=== PATIENT | female | born 1940 | race Caucasian/White ===

== ENCOUNTER 2017-11-20 02:39 | Inpatient (IN) | payer MEDICARE, OTHER ==
--- NOTE | 2017-11-20 02:45 | C.PDOC ---
History Of Present Illness The patient is brought to the ED by ambulance for evaluation of chest pain which woke her from her sleep around 1.5 hours ago. Medics were then called and patent was given 324mg Aspirin once sublingually. Code heart was activated in the ED. Dr. Ruiz (farm operations manager) was informed about patient's case. Patient is speaking in complete sentences. She denies fever, chills, nausea, vomiting at this time. Time Seen by Provider: 11/20/17 02:45 History Per: Patient, EMS History/Exam Limitations: no limitations Onset/Duration Of Symptoms: Hrs Current Symptoms Are (Timing): Still Present Severity: Severe Pain Scale Rating Of: 6 Quality: Dull, Tightness, Pressure, "Pain" Associated Symptoms: denies: Nausea, Dyspnea Modifying Factors: None Exacerbating Factors: None Alleviating Factors: None Nitro Therapy Administered: 1, Per EMS Recent travel outside of the [place]: No Additional History Per: Patient Past Medical History Reviewed: Historical Data, Nursing Documentation, Vital Signs Vital Signs: Last Vital Signs Temp 98.4 F 11/20/17 02:42 Pulse 88 11/20/17 03:14 Resp 20 11/20/17 03:06 BP 181/107 H 11/20/17 03:14 Pulse Ox 100 11/20/17 03:19 - Medical History PMH: No Chronic Diseases Surgical History: No Surg Hx Family History: States: Unknown Family Hx Review Of Systems Constitutional: Negative for: Fever, Chills ENT: Negative for: Throat Pain Cardiovascular: Positive for: Chest Pain. Negative for: Palpitations Respiratory: Negative for: Cough, Shortness of Breath Gastrointestinal: Negative for: Nausea, Vomiting, Abdominal Pain, Diarrhea Genitourinary: Negative for: Dysuria Musculoskeletal: Negative for: Back Pain Skin: Negative for: Rash, Lesions, Jaundice, Bruising Neurological: Negative for: Weakness, Numbness Psych: Negative for: Anxiety Physical Exam - Physical Exam Appears: Non-toxic Skin: Warm, Dry Head: Normacephalic Eye(s): bilateral: Normal Inspection Oral Mucosa: Moist Neck: Trachea Midline, Supple Chest: Symmetrical, No Deformity, No Tenderness Cardiovascular: Rhythm Regular, No Murmur Respiratory: No Rales, No Rhonchi, No Wheezing Gastrointestinal/Abdominal: Soft, No Tenderness Back: Normal Inspection Extremity: Normal ROM, Capillary Refill (less than 2 seconds ) Extremity: Bilateral: Atraumatic Pulses: Left Dorsalis Pedis: Normal, Right Dorsalis Pedis: Normal Neurological/Psych: Oriented x3 Gait: Unable To Assess ED Course And Treatment - Laboratory Results Result Diagrams: 11/20/17 03:02 11/20/17 03:02 ECG: Interpreted By Me, Viewed By Me ECG Rhythm: Sinus Rhythm, ST/T Changes (acute inf wall mi) O2 Sat by Pulse Oximetry: 100 (on RA) Pulse Ox Interpretation: Normal - Radiology CXR: Interpreted by Me, Viewed By Me CXR Interpretation: No: Infiltrates, Fracture, Pnemothorax Progress Note: Bloodwork, EKG, CXR ordered and reviewed. Brilinta PO, Heparin IV, Morphine IVP, Nitroglycerin IV, and Zofran IVP administered. Code heart called at 0234. Critical Care Time - Critical Care Note Total Time (in mins): 30 Documented critical care: time excludes all time spent performing seperately billable procedures. Disposition Discussed With : Mp Bowling Comment: accepted the pt on his service and took over the care at 3:15 AM Doctor Will See Patient In The: ED Counseled Patient/Family Regarding: Studies Performed, Diagnosis - Disposition Disposition: HOSPITALIZED Disposition Time: 02:45 Condition: GUARDED - POA Core Measure Indicators: Code Heart - Clinical Impression Clinical Impression: Acute inferior myocardial infarction - Scribe Statement The provider has reviewed the documentation as recorded by the Scribe (Brenda Vallejo) Provider Attestation: All medical record entries made by the Scribe were at my direction and personally dictated by me. I have reviewed the chart and agree that the record accurately reflects my personal performance of the history, physical exam, medical decision making, and the department course for this patient. I have also personally directed, reviewed, and agree with the discharge instructions and disposition. Decision To Admit - Pt Status Changed To: Hospital Disposition Of: Inpatient - Admit Certification Admit to Inpatient:: After my assessment, the patient will require hospitalization for at least two midnights. This is because of the severity of symptoms shown, intensity of services needed, and/or the medical risk in this patient being treated as an outpatient. - InPatient: Physician Admission Certification: I certify that this patient requires 2 or more midnights of care for the following reason:: After my assessment, the patient will require hospitalization for at least two midnights. This is because of the severity of symptoms shown, intensity of services needed, and/or the medical risk in this patient being treated as an outpatient. - . Bed Request Type: ICU Admitting Physician: Mp Bowling Patient Diagnosis: Acute inferior myocardial infarction
[2017-11-20 02:50] VITALS: BMI 77.5
[2017-11-20] MEDS: Heparin25000 units/250ml 1/2NS 25,000 UNITS/250 ML BAG IV STA ×2 (03:01→03:11)
[2017-11-20] MEDS ORDERED: Nitroglycerin 50mg in D5W 50 MG/250 ML BOTTLE IV ONE (03:04)
[2017-11-20 03:06] LABS: BASO # 0.1 K/uL (0.0-0.2); BASO % 0.8 % (0.0-2.0); EOS # 0.2 K/uL (0.0-0.7); EOS % 1.9 % (0.0-4.0); HEMOGLOBIN 13.4 g/dL (11.0-16.0); LYMPH # 1.5 K/uL (1.0-4.3); LYMPH % 14.3 % (20.0-40.0); MEAN CELL VOLUME 85.7 fL (81.0-99.0); MEAN CORPUSCULAR HEMOGLOBIN 28.9 pg (27.0-31.0); MEAN CORPUSCULAR HGB CONC 33.8 g/dL (33.0-37.0); MONO # 0.6 K/uL (0.0-0.8); MONO % 5.4 % (0.0-10.0); NEUT # 8.2 K/uL (1.8-7.0); NEUT % 77.6 % (50.0-75.0); RBC 4.65 Mil/uL (3.80-5.20); RED CELL DISTRIBUTION WIDTH 13.4 % (11.5-14.5); WHITE BLOOD COUNT 10.6 K/uL (4.8-10.8)
[2017-11-20] MEDS ORDERED: Heparin25000 units/250ml 1/2NS 25,000 UNITS/250 ML BAG IV ONE ×2 (03:06→03:17)
[2017-11-20] MEDS ORDERED: Morphine 4 MG/ML VIAL ONE (03:09)
[2017-11-20] MEDS ORDERED: Iodixanol 320 MG/ML 200 ML BOTTLE IV ONE (03:14)
[2017-11-20] MEDS ORDERED: Lidocaine 2% Inj (20ml) ONE (03:14)
[2017-11-20 03:16] LABS: ALB/GLOB RATIO 1.1 (1.0-2.1); ALBUMIN 4.1 g/dL (3.5-5.0); ALT/SGPT 27 U/L (9-52); AST/SGOT 42 U/L (14-36); BLOOD UREA NITROGEN 19 mg/dL (7-17); CALCIUM 9.8 mg/dl (8.6-10.4); GFR AFRICAN-AMERICAN > 60; GFR NON-AFRICAN AMERICAN > 60
[2017-11-20 03:35] LABS: PROTHROMBIN TIME 11.1 SECONDS (9.7-12.2)
[2017-11-20] MEDS ORDERED: Verapamil 2 ML ONE (03:56)
[2017-11-20] MEDS ORDERED: Metoprolol 1 mg/ml Inj IVP ONE ×2 (04:11→05:21)
[2017-11-20] MEDS ORDERED: Sodium Chloride 0.9% 1,000 ML IV SCH (05:00)
[2017-11-20] MEDS ORDERED: (Novolog) Insulin Aspart, Recombinant 100 u/ml 10 ml vial SC SCH (05:00)
[2017-11-20] MEDS ORDERED: Sodium Chloride 0.9% 1,000 ML IV ONE (05:03)
--- NOTE | 2017-11-20 05:09 | CP.PCM.CON ---
History of Present Illness - History of Present Illness History of Present Illness: 77 y/o female with pmx of HTN, hyperlipidemia presents to [facility] (formerly [facility]) as code heart. Patient underwent PCI with 2 TRISTAN in RCA. Patient had an episode of ventricular escape during procedure (with HR of 47) and epi/atropine was pushed intra-cath. ~140 ml of Contrast used during cardiac cath including vetriculogram. EF ~45% 2 mg of morphine was provided before my examination. Post procedure, patient in ICU HR 120s-130s, BP 103/87 Patient denies any chest pain, denies any dizziness. Review of Systems - Review of Systems Review of Systems: post cath, patient had no complaints Past Patient History - Past Social History Smoking Status: Never Smoked - CARDIAC Hx Angina: Yes Hx Hypertension: Yes - PULMONARY Hx Respiratory Disorders: No - ENDOCRINE/METABOLIC Hx Diabetes Mellitus Type 1: Yes - PSYCHIATRIC Hx Substance Use: No - ANESTHESIA Hx Anesthesia: Yes Hx Anesthesia Reactions: No Hx Malignant Hyperthermia: Yes Meds Allergies/Adverse Reactions: Allergies Allergy/AdvReac Type Severity Reaction Status Date / Time No Known Allergies Allergy Verified 11/20/17 02:53 - Medications Medications: Current Medications Aspirin (Aspirin Chewable) 81 mg PO DAILY [facility] Nitroglycerin/Dextrose (Nitroglycerin 50 Mg/250 Ml D5w) 50 mg in 250 mls @ 6 mls/hr IV .Q24H ONE; 20 MCG/MIN PRN Reason: Protocol Stop: 11/21/17 03:03 Last Admin: 11/20/17 03:14 Dose: 6 mls/hr Heparin Sodium/Sodium Chloride (Heparin 24727 Units/250ml 1/2 Normal Saline) 25 ,000 units in 250 mls @ 10 mls/hr IV .Q24H ONE Stop: 11/21/17 03:16 Last Admin: 11/20/17 02:50 Dose: 10 mls/hr Sodium Chloride (Sodium Chloride 0.9%) 1,000 mls @ 75 mls/hr IV .[id number] [facility] Sodium Chloride (Sodium Chloride 0.9%) 1,000 mls @ 250 mls/hr IV .Q4H ONE Stop: 11/20/17 09:02 Insulin Aspart (Novolog) 0 unit SC Q4H [facility] PRN Reason: Protocol Metoprolol Tartrate (Lopressor) 25 mg PO BID [facility] Rosuvastatin Calcium (Crestor) 10 mg PO HS [facility] Ticagrelor (Brilinta) 90 mg PO BID [facility] Physical Exam - Constitutional Appears: Non-toxic - Head Exam Head Exam: ATRAUMATIC, NORMAL INSPECTION, NORMOCEPHALIC - Eye Exam Eye Exam: EOMI - ENT Exam ENT Exam: Mucous Membranes Moist - Respiratory Exam Respiratory Exam: NORMAL BREATHING PATTERN - Cardiovascular Exam Cardiovascular Exam: Tachycardia, REGULAR RHYTHM - GI/Abdominal Exam GI & Abdominal Exam: Normal Bowel Sounds - Extremities Exam Extremities exam: Positive for: normal inspection - Neurological Exam Neurological exam: Alert, CN II-XII Intact, Oriented x3 Results - Vital Signs Recent Vital Signs: Last Vital Signs Temp 98.4 F 11/20/17 02:42 Pulse 88 11/20/17 03:14 Resp 20 11/20/17 03:06 BP 181/107 H 11/20/17 03:14 Pulse Ox 100 11/20/17 03:24 - Labs Result Diagrams: 11/20/17 03:02 11/20/17 03:02 Labs: Laboratory Results - last 24 hr 11/20/17 11/20/17 11/20/17 03:02 03:02 03:02 WBC 10.6 RBC 4.65 Hgb 13.4 Hct 39.8 MCV 85.7 MCH 28.9 MCHC 33.8 RDW 13.4 Plt Count 257 MPV 9.0 Neut % (Auto) 77.6 H Lymph % (Auto) 14.3 L [place] % (Auto) 5.4 Eos % (Auto) 1.9 Baso % (Auto) 0.8 Neut # (Auto) 8.2 H Lymph # (Auto) 1.5 [place] # (Auto) 0.6 Eos # (Auto) 0.2 Baso # (Auto) 0.1 PT 11.1 INR 1.0 APTT 180 H* Sodium 136 Potassium 3.8 Chloride 98 Carbon Dioxide 29 Anion Gap 14 BUN 19 H Creatinine 0.9 Est GFR ( Amer) > 60 Est GFR (Non-Af Amer) > 60 Random Glucose 326 H Calcium 9.8 Total Bilirubin 0.5 AST 42 H ALT 27 Alkaline Phosphatase 169 H Troponin I Total Protein 7.8 Albumin 4.1 Globulin 3.6 Albumin/Globulin Ratio 1.1 Blood Type Antibody Screen 11/20/17 11/20/17 03:02 03:02 WBC RBC Hgb Hct MCV MCH MCHC RDW Plt Count MPV Neut % (Auto) Lymph % (Auto) [place] % (Auto) Eos % (Auto) Baso % (Auto) Neut # (Auto) Lymph # (Auto) [place] # (Auto) Eos # (Auto) Baso # (Auto) PT INR APTT Sodium Potassium Chloride Carbon Dioxide Anion Gap BUN Creatinine Est GFR ( Amer) Est GFR (Non-Af Amer) Random Glucose Calcium Total Bilirubin AST ALT Alkaline Phosphatase Troponin I 2.8600 H* Total Protein Albumin Globulin Albumin/Globulin Ratio Blood Type O POSITIVE Antibody Screen Negative Assessment & Plan - Assessment and Plan (Free Text) Assessment: s/p PCI:continue dual antiplatelets: brilinta/asa, continue home dose of lopressor, statin, start acei after 24 hours -s/p 140 ml of constrast - continue IVF at 75 ml/hr -monitor BP as SBP on admission was ~180s-200 -post cardiac cath SBP 112 -DM: BGm high, keep NPO, check HBA1c, ISS/aspart -obtain post cath EKG -DVT ppx lovenox -pud ppx pepcid Patient will benefit from ICU level care post cath and monitor vitals and rhythm. d/w nursing - Date & Time Date: 11/20/17
[2017-11-20 06:35] LABS: BASO # 0.1 K/uL (0.0-0.2); BASO % 0.4 % (0.0-2.0); EOS % 0.1 % (0.0-4.0); HEMOGLOBIN 12.5 g/dL (11.0-16.0); LYMPH # 0.7 K/uL (1.0-4.3); LYMPH % 4.1 % (20.0-40.0); MEAN CELL VOLUME 86.2 fL (81.0-99.0); MEAN CORPUSCULAR HEMOGLOBIN 28.9 pg (27.0-31.0); MEAN CORPUSCULAR HGB CONC 33.6 g/dL (33.0-37.0); MEAN PLATELET VOLUME 8.7 fL (7.2-11.7); MONO # 0.2 K/uL (0.0-0.8); MONO % 1.4 % (0.0-10.0); PLATELET COUNT 256 K/uL (130-400); RBC 4.33 Mil/uL (3.80-5.20); RED CELL DISTRIBUTION WIDTH 13.4 % (11.5-14.5); WHITE BLOOD COUNT 15.9 K/uL (4.8-10.8)
[2017-11-20 06:46] LABS: ALBUMIN 3.7 g/dL (3.5-5.0); ALT/SGPT 55 U/L (9-52); AST/SGOT 177 U/L (14-36); BLOOD UREA NITROGEN 18 mg/dL (7-17); CALCIUM 9.3 mg/dl (8.6-10.4); GFR AFRICAN-AMERICAN > 60; GFR NON-AFRICAN AMERICAN > 60; MAGNESIUM 1.9 mg/dL (1.6-2.3)
[2017-11-20 07:24] LABS: INR 1.1; PROTHROMBIN TIME 11.8 SECONDS (9.7-12.2)
[2017-11-20 07:26] LABS: PARTIAL THROMBOPLASTIN TIME > 200 SECONDS (21-34)
[2017-11-20 08:48] LABS: LYMPHOCYTE 3 % (20-40); MONOCYTE 1 % (0-10); NEUTROPHIL 96 % (50-75); TOTAL CELLS COUNTED 100
[2017-11-20 08:49] LABS: PLATELET ESTIMATE NORMAL (NORMAL)
--- NOTE | 2017-11-20 09:02 | RAD ---
HISTORY: chest pain COMPARISON: Chest x-ray performed 12/07/12 TECHNIQUE: Chest, one view. FINDINGS: Examination limited by habitus. External defibrillator pad projects over the left mid to lower chest. LUNGS: No focal consolidation. Please note that chest x-ray has limited sensitivity for the detection of pulmonary masses. PLEURA: No significant pleural effusion identified. No definite pneumothorax . CARDIOVASCULAR: Heart size appears within normal limits. Atherosclerotic calcifications of the aortic knob. OSSEOUS STRUCTURES: Degenerative changes. VISUALIZED UPPER ABDOMEN: Unremarkable. OTHER FINDINGS: None. IMPRESSION: External defibrillator pad, left mid to lower chest. No focal consolidation, significant pleural effusion, or definite pneumothorax identified.
[2017-11-20] MEDS: (Novolog) Insulin Aspart, Recombinant 100 u/ml 10 ml vial SC SCH ×4 (09:27→22:06)
--- NOTE | 2017-11-20 12:34 | CARDCATH ---
PROCEDURE DATE: 11/20/2017. INDICATIONS: ST-elevation CA inferior wall. PROCEDURES PERFORMED: Left heart catheterization with selective left and right coronary angiogram. Emergent PTCA stenting of proximal RCA, 100% occlusion, deployment of two drug-eluting stents, lesion reduction from 100% up to 0% NANCY-3 flow; 6-Slovak right femoral arterial access and Mynx closure device for hemostasis. ANGIOGRAPHIC FINDINGS: RCA proximal 100% thrombotic ruptured occlusion, left main large-sized vessel bifurcates into LAD and circumflex. Left circumflex has a proximal 40 to 50% stenosis, gives off to medium size obtuse marginal branch, left anterior descending artery has a mild 20% to 30% stenosis gives off two small diagonal branches. Mid LAD 0%, distal LAD 0%. Left ventricular ejection fraction 40% to 45% basal inferior hypokinesis. EDP was 26 mmHg. Intervention performed, successful PTCA stenting of RCA. Whisper wire was crossed through the 100% occluded thrombotic occlusion. The lesion was pre-dilated with a 2.0 balloon, and subsequently, treated with a 3.5 x 28 Xience drug-eluting stent. The proximal edge had a dissection was covered with a 4.0 x 15 mm Xience drug-eluting stent. Final angiogram that showed lesion reduction of 0% NANCY-3 flow. IMPRESSION: Successful percutaneous transluminal coronary angioplasty and stenting of proximal right coronary artery, thrombotic lead up to 100% occlusion deployment of two drug eluting stents. RECOMMENDATION: The patient is to be kept in the ICU overnight. During the procedure, the patient went into complete heart block, required 1 dose of epi and Atropine. She did have AV dissociation at the end of the case. Blood pressure mildly hypertensive at 90 systolic and heart rate in the low 90s to 100s. Dual-antiplatelet therapy for one year. Guideline-directed therapy for CAD, CHF. Echocardiogram in the morning. Further titration based on the clinical course. Dre Ruiz MD
--- NOTE | 2017-11-20 18:24 | CARD ---
APPROVED REPORT EXAM: Two-dimensional and M-mode echocardiogram with Doppler and color Doppler. Other Information Quality : GoodRhythm : INDICATION Acute CT Surgery/Intervention Status/Post Intervention: Stent 2D DIMENSIONS IVSd1.2 (0.7-1.1cm)LVDd3.3 (3.9-5.9cm) PWd1.2 (0.7-1.1cm)LVDs2.3 (2.5-4.0cm) FS (%) 29.1 %LVEF (%)57.2 (>50%) M-Mode DIMENSIONS Left Atrium (MM)4.06 (2.5-4.0cm)Aortic Root2.73 (2.2-3.7cm) Aortic Cusp Exc.1.84 (1.5-2.0cm) Mitral Valve MV E Hwqgcxul739.0cm/sMV A Izbwzlgm364.5cm/sE/A ratio0.6 TDI E/Lateral E'0.0E/Medial E'0.0 Tricuspid Valve TR Peak Sgehlrbk784ci/sTR Peak Gr.[id number] LEFT VENTRICLE The left ventricle is normal size. There is mild concentric left ventricular hypertrophy. The Ejection Fraction is 55-60%. There is normal LV segmental wall motion. Transmitral Doppler flow pattern is Grade I-abnormal relaxation pattern. RIGHT VENTRICLE The right ventricle is normal size. The right ventricular systolic function is normal. ATRIA The left atrium is mildly dilated. The right atrium size is normal. The interatrial septum is intact with no evidence for an atrial septal defect. AORTIC VALVE The aortic valve is trileaflet. The aortic valve is mildly calcified. No aortic regurgitation is present. MITRAL VALVE Mitral annular calcification is moderate. Mitral regurgitation is mild. TRICUSPID VALVE The tricuspid valve is normal in structure. There is mild tricuspid regurgitation. Right ventricular systolic pressure is estimated at 32 mmHg. There is no pulmonary hypertension. PULMONIC VALVE The pulmonary valve is normal in structure. GREAT VESSELS The aortic root is normal size. The aortic root displays mild sclerocalcific changes of the aortic root. The IVC is normal in size and collapses >50% with inspiration. PERICARDIAL EFFUSION There is no pericardial effusion. <Conclusion> The left ventricle is normal size. There is mild concentric left ventricular hypertrophy. The Ejection Fraction is 55-60%. Transmitral Doppler flow pattern is Grade I-abnormal relaxation pattern. The left atrium is mildly dilated. Mitral annular calcification is moderate. Mitral regurgitation is mild. There is mild tricuspid regurgitation. Right ventricular systolic pressure is estimated at 32 mmHg. There is no pulmonary hypertension. The aortic root is normal size. The aortic root displays mild sclerocalcific changes of the aortic root.
--- NOTE | 2017-11-20 23:57 | HP ---
HISTORY OF PRESENT ILLNESS: A 77-year-old female with a history of hypertension, diabetes, high cholesterol, possible angina, was brought in the history of chest discomfort, which started about an hour ago, prior to arrival to the emergency room. She was found to be in acute inferior wall GA. The patient had a Code Heart, taken to the [facility] and had 2 stents placed in RCA by Dr. Ruiz. The patient was subsequently admitted to the ICU. PERSONAL HISTORY: Does not smoke, does not drink. ALLERGIES: Denied. FAMILY HISTORY: Negative for premature coronary artery disease. REVIEW OF SYSTEMS: No fever, no chills. No cough, no exudates, no hematemesis, no melena, no issue of peptic ulcer disease, no bleeding disorders, occasional joint pains, both in the knees and the back. Skin is negative for rash. Neurologically, no history of TIAs or CVA. Psych: No evidence of depression or anxiety. Previously, she had an occasional chest pain, was scheduled for Myoview stress test which was not done yet. Echocardiogram had shown normal LV systolic function at home. She had been on aspirin, Crestor, Toprol, insulin, hydralazine. PAST MEDICAL HISTORY: Essentially unremarkable. PHYSICAL EXAMINATION GENERAL: Shows an elderly female, who is conscious, alert, somewhat obese, in no acute distress. VITAL SIGNS: She is 5 feet, weighs 180 pounds. Blood pressure is 140/70, heart rate of 96, respiratory rate of 12, afebrile. HEENT: Head is normocephalic. Eyes: No pallor, no icterus. NECK: Supple. No carotid bruits. LUNGS: Clear to auscultation bilaterally. HEART: PMI is not localized. S1 and S2 is distant. No definite gallops or murmurs. ABDOMEN: Soft, nontender. EXTREMITIES: No cyanosis, clubbing, or edema. Distal pulses are intact. LAB DATA: Hemoglobin is 12.5, potassium is 3.8, BUN is 18, creatinine is 0.9. Troponins were elevated from 2.8 to 5.2. Initial EKG had shown acute injury to the inferior wall. Repeat EKG this morning had shown evolutionary changes from the inferior wall GA. The patient currently is on aspirin, Brilinta, and metoprolol, along with insulin. ASSESSMENT: A 77-year-old female, with history of hypertension, diabetes, has presented with acute inferior wall myocardial infarction. Status post angioplasty to right coronary artery with two stents deployed. PLAN: Continue the aspirin, Brilinta, beta blockers. Control the diabetes. We will obtain echocardiogram in a couple of days to evaluate LV systolic function. Mp Bowling MD
[2017-11-21 06:56] LABS: BASO # 0.1 K/uL (0.0-0.2); BASO % 0.6 % (0.0-2.0); EOS # 0.1 K/uL (0.0-0.7); EOS % 0.7 % (0.0-4.0); HEMOGLOBIN 12.3 g/dL (11.0-16.0); LYMPH # 0.9 K/uL (1.0-4.3); LYMPH % 9.6 % (20.0-40.0); MEAN CELL VOLUME 85.7 fL (81.0-99.0); MEAN CORPUSCULAR HEMOGLOBIN 28.5 pg (27.0-31.0); MEAN CORPUSCULAR HGB CONC 33.2 g/dL (33.0-37.0); MEAN PLATELET VOLUME 8.9 fL (7.2-11.7); MONO # 0.5 K/uL (0.0-0.8); MONO % 5.7 % (0.0-10.0); NEUT # 7.9 K/uL (1.8-7.0); NEUT % 83.4 % (50.0-75.0); NRBC % 0.1 % (0.0-2.0); PLATELET COUNT 241 K/uL (130-400); RBC 4.31 Mil/uL (3.80-5.20); RED CELL DISTRIBUTION WIDTH 13.3 % (11.5-14.5); WHITE BLOOD COUNT 9.5 K/uL (4.8-10.8)
[2017-11-21 07:26] LABS: ALBUMIN 3.3 g/dL (3.5-5.0); ALT/SGPT 50 U/L (9-52); AST/SGOT 140 U/L (14-36); BLOOD UREA NITROGEN 19 mg/dL (7-17); CALCIUM 8.9 mg/dl (8.6-10.4); GFR AFRICAN-AMERICAN > 60; GFR NON-AFRICAN AMERICAN > 60
[2017-11-21] MEDS: (Novolog) Insulin Aspart, Recombinant 100 u/ml 10 ml vial SC SCH ×5 (08:00→22:24)
[2017-11-21 08:35] LABS: LYMPHOCYTE 7 % (20-40); MONOCYTE 6 % (0-10); NEUTROPHIL 87 % (50-75); PLATELET ESTIMATE NORMAL (NORMAL); TOTAL CELLS COUNTED 100
[2017-11-21 08:41] LABS: ANISOCYTOSIS SLIGHT
[2017-11-21 08:42] LABS: HYPOCHROMIC SLIGHT; POLYCHROMIC SLIGHT
[2017-11-21] MEDS: Enoxaparin 40 mg Syringe SC SCH (09:22)
--- NOTE | 2017-11-21 12:19 | CP.PCM.PN ---
Subjective - Date & Time of Evaluation Date of Evaluation: 11/21/17 Time of Evaluation: 12:18 - Subjective Subjective: better.no chest pains. Objective - Vital Signs/Intake and Output Vital Signs (last 24 hours): Temp Pulse Resp BP Pulse Ox 98.6 F 90 18 155/70 H 96 11/21/17 08:00 11/21/17 11:00 11/21/17 11:00 11/21/17 11:00 11/21/17 11:00 Intake and Output: 11/21/17 11/21/17 06:59 18:59 Intake Total 90 370 Output Total 1100 150 Balance -1010 220 - Medications Medications: Current Medications Aspirin (Aspirin Chewable) 81 mg PO DAILY [facility] Last Admin: 11/21/17 09:20 Dose: 81 mg Enoxaparin Sodium (Lovenox) 40 mg SC DAILY [facility] Last Admin: 11/21/17 09:22 Dose: 40 mg Famotidine (Pepcid) 20 mg PO DAILY [facility] Last Admin: 11/21/17 09:23 Dose: 20 mg Glimepiride (Amaryl) 2 mg PO DAILY [facility] Insulin Aspart (Novolog) 0 unit SC ACHS [facility] PRN Reason: Protocol Last Admin: 11/21/17 12:02 Dose: 8 unit Insulin Glargine (Lantus) 25 unit SC ACB [facility] Metoprolol Tartrate (Lopressor) 25 mg PO BID [facility] Last Admin: 11/21/17 09:22 Dose: 25 mg Nitroglycerin (Nitrostat Sl Tab) 0.4 mg SL Q5M PRN PRN Reason: Pain, Mild (1-3) Last Admin: 11/20/17 13:23 Dose: 0.4 mg Rosuvastatin Calcium (Crestor) 10 mg PO HS [facility] Last Admin: 11/20/17 22:05 Dose: 10 mg Sitagliptin Phosphate (Januvia) 50 mg PO DAILY [facility] Ticagrelor (Brilinta) 90 mg PO BID [facility] Last Admin: 11/21/17 09:22 Dose: 90 mg - Labs Labs: 11/21/17 06:40 11/21/17 06:40 PT 11.8 SECONDS (9.7-12.2) 11/20/17 06:30 INR 1.1 11/20/17 06:30 APTT > 200 SECONDS (21-34) H* D 11/20/17 06:30 - Constitutional Appears: No Acute Distress - Head Exam Head Exam: NORMOCEPHALIC - ENT Exam ENT Exam: Normal Exam - Respiratory Exam Respiratory Exam: Clear to Ausculation Bilateral - Cardiovascular Exam Cardiovascular Exam: REGULAR RHYTHM, Murmur - GI/Abdominal Exam GI & Abdominal Exam: Soft - Extremities Exam Extremities Exam: absent: Pedal Edema - Neurological Exam Neurological Exam: Alert, Oriented x3 Assessment and Plan - Assessment and Plan (Free Text) Plan: inferior mi,s/p stent elidia x 2.will resume rx for dm.transfer to floor
--- NOTE | 2017-11-21 20:18 | CARD ---
APPROVED REPORT EKG Measurement Heart [id number] <Conclusion> Normal sinus rhythm ST elevation, consider inferolateral injury or acute infarct ACUTE ND / STEMI Consider right ventricular involvement in acute inferior infarct Abnormal ECG
[2017-11-22] MEDS: (Novolog) Insulin Aspart, Recombinant 100 u/ml 10 ml vial SC SCH ×4 (08:19→21:25)
[2017-11-22] MEDS: (Lantus) Insulin Glargine, Recombinant SC SCH (08:19)
[2017-11-22] MEDS: Enoxaparin 40 mg Syringe SC SCH (09:37)
[2017-11-23] MEDS: (Lantus) Insulin Glargine, Recombinant SC SCH (08:21)
[2017-11-23] MEDS: (Novolog) Insulin Aspart, Recombinant 100 u/ml 10 ml vial SC SCH ×4 (08:21→22:18)
[2017-11-23] MEDS: Enoxaparin 40 mg Syringe SC SCH (10:12)
--- NOTE | 2017-11-23 17:30 | CP.PCM.PN ---
Subjective - Date & Time of Evaluation Date of Evaluation: 11/23/17 Time of Evaluation: 17:29 - Subjective Subjective: no cp.meds noted.labs noted. Objective - Vital Signs/Intake and Output Vital Signs (last 24 hours): Temp Pulse Resp BP Pulse Ox 98.5 F 72 22 125/47 L 98 11/23/17 12:00 11/23/17 14:30 11/23/17 14:30 11/23/17 12:06 11/23/17 14:30 Intake and Output: 11/23/17 11/23/17 06:59 18:59 Intake Total 240 480 Output Total 400 300 Balance -160 180 - Medications Medications: Current Medications Aspirin (Aspirin Chewable) 81 mg PO DAILY [facility] Last Admin: 11/23/17 10:06 Dose: 81 mg Enoxaparin Sodium (Lovenox) 40 mg SC DAILY [facility] Last Admin: 11/23/17 10:12 Dose: 40 mg Famotidine (Pepcid) 20 mg PO DAILY [facility] Last Admin: 11/23/17 10:07 Dose: 20 mg Glimepiride (Amaryl) 2 mg PO DAILY [facility] Last Admin: 11/23/17 10:06 Dose: 2 mg Insulin Aspart (Novolog) 0 unit SC ACHS [facility] PRN Reason: Protocol Last Admin: 11/23/17 11:46 Dose: 4 unit Insulin Glargine (Lantus) 25 unit SC ACB [facility] Last Admin: 11/23/17 08:21 Dose: 25 units Metoprolol Tartrate (Lopressor) 25 mg PO BID [facility] Last Admin: 11/23/17 10:06 Dose: 25 mg Nitroglycerin (Nitrostat Sl Tab) 0.4 mg SL Q5M PRN PRN Reason: Pain, Mild (1-3) Last Admin: 11/20/17 13:23 Dose: 0.4 mg Rosuvastatin Calcium (Crestor) 10 mg PO HS [facility] Last Admin: 11/22/17 21:33 Dose: 10 mg Sitagliptin Phosphate (Januvia) 50 mg PO DAILY [facility] Last Admin: 11/23/17 10:06 Dose: 50 mg Ticagrelor (Brilinta) 90 mg PO BID [facility] Last Admin: 11/23/17 10:06 Dose: 90 mg - Labs Labs: 11/21/17 06:40 11/21/17 06:40 PT 11.8 SECONDS (9.7-12.2) 11/20/17 06:30 INR 1.1 11/20/17 06:30 APTT > 200 SECONDS (21-34) H* D 11/20/17 06:30 - Eye Exam Eye Exam: Normal appearance - Neck Exam Neck Exam: Normal Inspection - Respiratory Exam Respiratory Exam: Clear to Ausculation Bilateral - Cardiovascular Exam Cardiovascular Exam: REGULAR RHYTHM, Murmur - GI/Abdominal Exam GI & Abdominal Exam: Soft - Extremities Exam Extremities Exam: absent: Pedal Edema - Neurological Exam Neurological Exam: Alert, Oriented x3 Assessment and Plan - Assessment and Plan (Free Text) Assessment: s/p iwmi.stable. will d/c am
[2017-11-24] MEDS: (Novolog) Insulin Aspart, Recombinant 100 u/ml 10 ml vial SC SCH ×4 (08:20→21:25)
[2017-11-24] MEDS: (Lantus) Insulin Glargine, Recombinant SC SCH (08:28)
[2017-11-24] MEDS: Enoxaparin 40 mg Syringe SC SCH (09:58)
--- NOTE | 2017-11-24 20:20 | CP.PCM.PN ---
Subjective - Date & Time of Evaluation Date of Evaluation: 11/24/17 Time of Evaluation: 20:19 - Subjective Subjective: mild sob.no cp Objective - Vital Signs/Intake and Output Vital Signs (last 24 hours): Temp Pulse Resp BP Pulse Ox 98.3 F 77 20 118/69 97 11/24/17 16:00 11/24/17 16:00 11/24/17 16:00 11/24/17 17:58 11/24/17 16:00 - Medications Medications: Current Medications Aspirin (Aspirin Chewable) 81 mg PO DAILY [facility] Last Admin: 11/24/17 09:59 Dose: 81 mg Enoxaparin Sodium (Lovenox) 40 mg SC DAILY [facility] Last Admin: 11/24/17 09:58 Dose: 40 mg Famotidine (Pepcid) 20 mg PO DAILY [facility] Last Admin: 11/24/17 09:59 Dose: 20 mg Glimepiride (Amaryl) 2 mg PO DAILY [facility] Last Admin: 11/24/17 09:59 Dose: 2 mg Insulin Aspart (Novolog) 0 unit SC ACHS [facility] PRN Reason: Protocol Last Admin: 11/24/17 17:59 Dose: 4 unit Insulin Glargine (Lantus) 25 unit SC ACB [facility] Last Admin: 11/24/17 08:28 Dose: 25 units Metoprolol Tartrate (Lopressor) 25 mg PO BID [facility] Last Admin: 11/24/17 17:58 Dose: 25 mg Nitroglycerin (Nitrostat Sl Tab) 0.4 mg SL Q5M PRN PRN Reason: Pain, Mild (1-3) Last Admin: 11/20/17 13:23 Dose: 0.4 mg Rosuvastatin Calcium (Crestor) 10 mg PO HS [facility] Last Admin: 11/23/17 22:17 Dose: 10 mg Sitagliptin Phosphate (Januvia) 50 mg PO DAILY [facility] Last Admin: 11/24/17 09:59 Dose: 50 mg Ticagrelor (Brilinta) 90 mg PO BID [facility] Last Admin: 11/24/17 17:57 Dose: 90 mg - Labs Labs: 11/21/17 06:40 11/21/17 06:40 PT 11.8 SECONDS (9.7-12.2) 11/20/17 06:30 INR 1.1 11/20/17 06:30 APTT > 200 SECONDS (21-34) H* D 11/20/17 06:30 - Constitutional Appears: No Acute Distress - Head Exam Head Exam: NORMOCEPHALIC - Neck Exam Neck Exam: Normal Inspection - Respiratory Exam Respiratory Exam: Clear to Ausculation Bilateral - Cardiovascular Exam Cardiovascular Exam: REGULAR RHYTHM - GI/Abdominal Exam GI & Abdominal Exam: Soft - Extremities Exam Extremities Exam: absent: Pedal Edema - Neurological Exam Neurological Exam: Alert, Oriented x3 Assessment and Plan - Assessment and Plan (Free Text) Plan: tele nsr.will observe tonight.
[2017-11-25] MEDS: (Lantus) Insulin Glargine, Recombinant SC SCH (08:37)
[2017-11-25] MEDS: (Novolog) Insulin Aspart, Recombinant 100 u/ml 10 ml vial SC SCH ×2 (08:38→12:58)
[2017-11-25 09:19] VITALS: PULSE 71; RESP 20; TEMP 98.2; O2SAT 96
[2017-11-25 09:59] VITALS: BP 130/77
[2017-11-25] MEDS: Enoxaparin 40 mg Syringe SC SCH (09:59)
--- NOTE | 2017-11-26 06:43 | DS ---
HOSPITAL COURSE: A 77-year-old female who was brought in with a history of acute inferior wall MO. She underwent cardiac cath at that time, angioplasty of the RCA, proximal and middle. Drug-eluting stent was deferred. Postoperatively, the patient did well. She is ambulating. Vital signs are stable. Telemetry showed sinus rhythm. She is hypertensive, diabetic lady. The circ also has moderate disease. LV function is normal. Echocardiogram showed normal LV systolic function and wall motion. At this point, she will be discharged to be continued on metoprolol 50 mg, baby aspirin 1 a day, Brilinta 90 b.i.d., along with Basalog insulin, Janumet 50/ 500 mg one p.o. twice a day, glimepiride, and Hyzaar 50/12.5. She will return to see me in 2 weeks' time. FINAL DIAGNOSES: Acute inferior myocardial infarction, hypertension, diabetes. She is also on Lipitor 40 mg, will be continued. Mp Bowling MD
--- NOTE | 2017-11-26 23:16 | CARD ---
APPROVED REPORT EKG Measurement Heart [id number] <Conclusion> Atrial flutter Inferior infarct, possibly acute Lateral injury pattern ACUTE ID / STEMI Consider right ventricular involvement in acute inferior infarct Abnormal ECG
--- NOTE | 2017-11-26 23:17 | CARD ---
APPROVED REPORT EKG Measurement Heart [id number] <Conclusion> Atrial flutter Inferior infarct, possibly acute Lateral injury pattern ACUTE NE / STEMI Consider right ventricular involvement in acute inferior infarct Abnormal ECG
== END 2017-11-25 16:37 | disposition home or self-care (01) | DRG 247 ==
LOC: C.ER 02:39 → C.9I 03:13 → C.6T 11-24 00:35
PROVIDERS: ADMIT Internal Medicine Cardiovascular Disease; ATTEND Internal Medicine Cardiovascular Disease
PROC: 027035Z Dilation of Coronary Artery, One Artery with Two Drug-eluting Intraluminal Devices, Percutaneous Approach (ICD-10-PCS; principal; 2017-11-20)
PROC: 4A023N7 Measurement of Cardiac Sampling and Pressure, Left Heart, Percutaneous Approach (ICD-10-PCS; 2017-11-20)
PROC: B2111ZZ Fluoroscopy of Multiple Coronary Arteries using Low Osmolar Contrast (ICD-10-PCS; 2017-11-20)
DX: I21.19 ST elevation (STEMI) myocardial infarction involving other coronary artery of inferior wall (principal); I44.2 Atrioventricular block, complete; I45.89 Other specified conduction disorders; E11.9 Type 2 diabetes mellitus without complications; E78.00 Pure hypercholesterolemia, unspecified; E78.5 Hyperlipidemia, unspecified; I10 Essential (primary) hypertension; I25.10 Atherosclerotic heart disease of native coronary artery without angina pectoris; Z79.899 Other long term (current) drug therapy